=== PATIENT | male | born 1955 | race African-American/Black ===

== ENCOUNTER 2019-10-22 18:42 | Emergency (ER) | payer MEDICARE ==
[2019-10-22 18:59] VITALS: BP 149/74; PULSE 68; RESP 18; TEMP 98.1
[2019-10-22] MEDS ORDERED: DIPH,PERTUS(ACELL)TETVAC-LF 0.5 ML VIAL IM ONE (19:18)
[2019-10-22] MEDS ORDERED: TOPICAL SKIN ADHESIVE 1 EACH AMP TOPICAL ONE (19:18)
--- NOTE | 2019-10-22 19:42 | ED ---
Wound/Laceration HPI - General Chief Complaint: Wound/Laceration Stated Complaint: finger lac Time Seen by Provider: 10/22/19 19:01 Source: patient Mode of arrival: ambulatory Limitations: no limitations - History of Present Illness Initial Comments: 64-year-old male presented for chief complaint of left index finger laceration. Patient states she is cutting chicken when he lacerated his left index finger he states he put [place] wound apply pressure presents to the ER. Patient denies any other areas of injury. Patient unsure of his last tetanus. Doesn't limitations of range of motion or strength. Remaining review of system negative - Related Data Allergies Allergy/AdvReac Type Severity Reaction Status Date / Time No Known Allergies Allergy Verified 10/22/19 18:58 Review of Systems ROS Statement: Those systems with pertinent positive or pertinent negative responses have been documented in the HPI. ROS Other: All systems not noted in ROS Statement are negative. Past Medical History Past Medical History: No Reported History History of Any Multi-Drug Resistant Organisms: None Reported Past Surgical History: No Surgical Hx Reported Past Psychological History: No Psychological Hx Reported Smoking Status: Never smoker Past Alcohol Use History: None Reported Past Drug Use History: None Reported General Exam - General Exam Comments Initial Comments: General: The patient is awake and alert, in no distress, and does not appear acutely ill. Eye: Pupils are equal, round and reactive to light, extra-ocular movements are intact. No nystagmus. There is normal conjunctiva bilaterally. No signs of icterus. Ears, nose, mouth and throat: There are moist mucous membranes and no oral lesions. Musculoskeletal: Normal ROM, no tenderness. Strength 5/5 at the mcp dip and pip joints. Sensation intact proximal and distal to injury site. Radial pulses equal bilaterally 2+. Neurological: A&O x 3. CN II-XII intact grossly, There are no obvious motor or sensory deficits. Coordination appears grossly intact. Speech is normal. Skin: Skin is warm and dry and no rashes. Very superficial 3/4 cm laceration of the left index finger pad. Psychiatric: Cooperative, appropriate mood & affect, normal judgment. Limitations: no limitations Course Vital Signs 10/22/19 18:54 Temperature 98.1 F Pulse Rate 68 Respiratory 18 Rate Blood Pressure 149/74 O2 Sat by Pulse 99 Oximetry Medical Decision Making - Medical Decision Making Area irrigated and cleansed with iodine, wound edges approximated well with exofin. bandage applied. tdap updated. very superifical no concern given location/depth for any tendon injury. Patient will be discharge wtih pcp f/u and wound adhesive care instructions. Disposition Clinical Impression: Finger laceration Disposition: HOME SELF-CARE Condition: Good Instructions (If sedation given, give patient instructions): Skin Adhesive Care (ED) Additional Instructions: Please use medication as discussed. Please follow-up with family doctor in the next 2 days. Please return to emergency room if the symptoms increase or worsen or for any other concerns. Is patient prescribed a controlled substance at d/c from ED?: No Referrals: Suzanne Sanders MD [Primary Care Provider] - 1-2 days Time of Disposition: 19:42
== END 2019-10-22 19:52 | disposition home or self-care (01) ==
LOC: EC 18:42
DX: S61.211A Laceration without foreign body of left index finger without damage to nail, initial encounter (principal); W26.0XXA Contact with knife, initial encounter; Y93.G3 Activity, cooking and baking
CPT/HCPCS: 12001; 90471; 90715; 99282

== ENCOUNTER 2019-12-19 08:01 | Day surgery (SDC) | payer MEDICARE ==
[2019-12-17 10:15] VITALS: BMI 21.9
[~2019-12-19 08:01] MED LIST: LACTATED RINGERS 1,000 ML IV SCH
[2019-12-19 09:02] VITALS: TEMP 97.2
[2019-12-19] MEDS ORDERED: GLUCAGON 1 MG/ML VIAL ONE (09:37)
[2019-12-19] MEDS ORDERED: PROPOFOL 10 MG/ML 20 ML VIAL IV ONE (09:37)
--- NOTE | 2019-12-19 09:39 | P.GSHP ---
History of Present Illness H&P Date: 12/19/19 Chief Complaint: Screening colonoscopy This 64-year-old male presents today for screening colonoscopy. Patient denies any significant GI complaints. Past Medical History Past Medical History: No Reported History Additional Past Medical History / Comment(s): hx migraines, constipation, History of Any Multi-Drug Resistant Organisms: None Reported Past Surgical History: Orthopedic Surgery Additional Past Surgical History / Comment(s): rt foot surgeries Past Anesthesia/Blood Transfusion Reactions: No Reported Reaction Smoking Status: Former smoker - Past Family History Father Family Medical History: Cancer Additional Family Medical History / Comment(s): lung Medications and Allergies Home Medications Medication Instructions Recorded Confirmed Type Cholecalciferol [Vitamin D3 (25 1,000 unit PO DAILY 12/17/19 12/19/19 History Mcg = 1000 Iu)] Cyanocobalamin (Vitamin B-12) 2,500 mcg PO DAILY 12/17/19 12/19/19 History [Vitamin B-12] Multivitamins, Thera [Multivitamin 1 tab PO DAILY 12/17/19 12/19/19 History (formulary)] Naproxen Sodium [Aleve] 220 mg PO Q12HR PRN 12/17/19 12/19/19 History Allergies Allergy/AdvReac Type Severity Reaction Status Date / Time No Known Allergies Allergy Verified 12/19/19 08:51 Surgical - Exam Vital Signs Temp Pulse Resp BP Pulse Ox 97.2 F L 66 16 157/86 97 12/19/19 08:57 12/19/19 08:57 12/19/19 08:57 12/19/19 08:57 12/19/19 08:57 - General well developed, well nourished, no distress - Eyes PERRL - ENT normal pinna - Neck no masses - Respiratory normal expansion - Cardiovascular Rhythm: regular - Abdomen Abdomen: soft, non tender Assessment and Plan Assessment: We'll perform screening colonoscopy.
--- NOTE | 2019-12-19 09:53 | P.OP ---
Date of Procedure: 12/19/19 Preoperative Diagnosis: Screening colonoscopy Postoperative Diagnosis: Left colon stricture Diverticulosis Procedure(s) Performed: Colonoscopy Anesthesia: MAC Surgeon: Prashanth Contreras Pathology: none sent Condition: stable Disposition: PACU Description of Procedure: The patient's placed on the endoscopy table lateral position. He received IV sedation. Digital rectal exam was performed which revealed no abnormalities. The prostate was symmetric without nodules. The flexible colonoscope was then placed patient anus and passed throughout the colon. In the left colon appeared to be strictured. The colon could not be a slight of air. Undergone was given. The colon scope was not insufflated. This point scope withdrawn. In the descending and; a few scattered diverticula. Scope was then brought back the rectum this appeared normal. Scope was withdrawn for patient. Patient was scheduled for a barium enema.
[2019-12-19 10:13] VITALS: PULSE 58
[2019-12-19 10:26] VITALS: BP 137/79; RESP 18
--- NOTE | 2019-12-19 18:34 | XR ---
EXAMINATION TYPE: XR abdomen 1V at 1248 hours, XR abdomen 1V and 0242 hours DATE OF EXAM: 12/19/2019 Comparison: None Clinical History: 64-year-old male post incomplete colonoscopy, BE prelim Findings: Consecutive radiographs were taken. The initial radiograph showed excessive colonic air. Subsequent r adiograph showed greater degree of small bowel air with similar persistent excessive colonic air. Pat ient will need to return for barium enema exam. Impression: Consecutive preliminary images taken approximately 2 hours apart after incomplete colonoscopy. Both i mages show excessive colonic air. Patient will need to return at a later time for barium enema exam.
--- NOTE | 2019-12-23 12:59 | CDI ---
Date: 12.23.2019 CDS/Chemistry Technologist Name: Tanya Wiseman Phone: If any questions, call Maame Hernandez Crew Manager at [phone] Patient Name: Dani Oconnor Admit Date 12.19.19 Discharge Date: 12.19.19 ATTENTION: The [facility] Coding Staff appreciate your assistance in clarifying documentation. Please respond to the clarification below the line at the bottom and electronically sign. The [facility] Coding staff will review the response and follow-up if needed. Please note: Queries are made part of the Legal Health Record. If you have any questions, please contact the Crew Manager. Dear Dr. Contreras In order to code to the greatest specificity and for the greatest reimbursement I need the following information: In your colonoscopy report you have documented colonoscope was .passed throughout the colon. Please specify to what point the colonoscope reached. Thank you for your kind consideration. The colonoscope was placed into the left colon_ MTDD
== END 2019-12-19 11:50 | disposition home or self-care (01) ==
LOC: ORWHC2ENDO 08:01
PROVIDERS: ATTEND Surgery
DX: Z12.11 Encounter for screening for malignant neoplasm of colon (principal); K56.699 Other intestinal obstruction unspecified as to partial versus complete obstruction; K57.30 Diverticulosis of large intestine without perforation or abscess without bleeding; K21.9 Gastro-esophageal reflux disease without esophagitis; Z86.69 Personal history of other diseases of the nervous system and sense organs; Z87.19 Personal history of other diseases of the digestive system; Z98.890 Other specified postprocedural states; Z87.891 Personal history of nicotine dependence; Z80.1 Family history of malignant neoplasm of trachea, bronchus and lung
CPT/HCPCS: 45378; 74018; J1610; J2704

== ENCOUNTER → 2019-12-20 | Outpatient (CLI) | payer MEDICARE ==
--- NOTE | 2019-12-20 09:43 | XR ---
EXAMINATION TYPE: XR KUB DATE OF EXAM: 12/20/2019 Comparison: 12/19/2019 Clinical History: 64-year-old male Left colon stricture. Failed colonoscopy Findings: Persistent moderate gaseous distention throughout the colon and additional gaseous small bowel loops. Some interval evacuation of air from the descending colon. Pelvic phleboliths. Nonobstructed bowel g as pattern. Impression: Persistent gassy colon. Only slight improvement on the left side of the colon. Incomplete colonoscopy on 12/19/2019 returning today for potential barium enema. Decision is made to reschedule barium enem a to a future date due to excess colonic air.
== END | disposition home or self-care (01) ==
LOC: RADFLMAIN 07:38
PROVIDERS: ATTEND Surgery
DX: K56.699 Other intestinal obstruction unspecified as to partial versus complete obstruction (principal)
CPT/HCPCS: 74018

== ENCOUNTER → 2020-01-13 | Outpatient (CLI) | payer MEDICARE ==
--- NOTE | 2020-01-13 11:35 | FL ---
EXAMINATION TYPE: FL barium enema DATE OF EXAM: 01/13/2020 COMPARISON: NONE HISTORY: Unsuccessful colonoscopy. Correlate for left colonic stricture. TECHNIQUE: A single contrast barium enema study is performed. FINDINGS: Quality Improvement Analyst view of the abdomen shows overall non-obstructive bowel gas pattern. No evidence of any mass or polyp, obstructing or constricting lesion throughout the colon. No signif icant diverticular disease is noted. Appendix was filled and appeared normal. The terminal ileum was refluxed and appears within normal l imits. IMPRESSION: Normal barium enema study.
== END | disposition home or self-care (01) ==
LOC: RADFLMAIN 09:02
PROVIDERS: ATTEND Surgery
DX: K56.699 Other intestinal obstruction unspecified as to partial versus complete obstruction (principal)
CPT/HCPCS: 74270

== ENCOUNTER → 2020-12-25 | Day surgery (SDC) | payer MEDICARE ==
[2020-12-24 09:17] VITALS: BMI 22.5
[~2020-12-25] MED LIST changes: +ALPRAZolam 0.25 MG TAB PO PRN; +ALPRAZolam 0.5 MG TAB PO PRN; +ASPIRIN 325 MG TAB PO ONE; +ASPIRIN 81 MG PO SCH; +ATORVASTATIN 80 MG TAB PO ONE; +HEPARIN SODIUM 1,000 UN/ML (10ML VL) IV ONE; +IOPAMIDOL-370 125ML BTL INJ ONE; -LACTATED RINGERS 1,000 ML IV SCH; +LIDOCAINE 1% INJ 10MG/ML (20 ML MDV) ONE; +LIDOCAINE 1% INJ 10MG/ML (20 ML MDV) SQ ONE; +MIDAZOLAM 2 MG/2 ML VIAL IV ONE; +NITROGLYCERIN SL TABS 0.4 MG TAB SUBLINGUAL PRN; +PRAVASTATIN SODIUM 80 MG TAB PO SCH; +RX INFO: IV CONTRAST WAS GIVEN 1 EACH MISC MISCELLANE PRN; +SODIUM CHLORIDE 0.9% 1,000 ML IV SCH; +SODIUM CHLORIDE 0.9% 1,000 ML in EMPTY BAG 1 BAG IV SCH; +VERAPAMIL 2.5 MG/ML 2 ML AMP ONE; +VERAPAMIL SYRINGE (5 MG/10 ML) INTRAARTER ONE; +fentaNYL (PF) 50 MCG/ML 2 ML AMP IV ONE; +fentaNYL (PF) 50 MCG/ML 2 ML AMP ONE; +lisinopriL 5 MG TAB PO SCH
[2020-12-25 08:17] LABS: Potassium 4.3 mmol/L (3.5-5.1)
[2020-12-25 08:23] VITALS: TEMP 98.3
--- NOTE | 2020-12-25 13:52 | CC ---
CARDIAC CATHETERIZATION REPORT DATE OF SERVICE: 12/25/2020 Mr. Oconnor is a 65-year-old male with known history of hypertension and hyperlipidemia who recently presented with evidence of TIA. As part of his evaluation, he underwent myocardial perfusion imaging that revealed evidence of inducible ischemia. In view of that, recommendation was made regarding cardiac catheterization. The procedure as well as its risks and the complications were discussed with the patient, who was in full understanding and agreement. PROCEDURE DESCRIPTION: Patient was brought to the lab assistant in a fasting, semi-sedated state after receiving fentanyl and Benadryl and achieving a moderate conscious sedated state. Using Xylocaine anesthesia and Seldinger technique, a 6-Swazi sheath was introduced in the right radial artery. Selective right and left coronary angiography was performed using 5- Swazi 3.5 bend right and left Dai catheters. Multiple views were taken of the arteries, including hemiaxial views. The right Dai was used to cross the aortic valve, and left ventricular end-diastolic pressure was calculated. Following that, catheter and sheaths were removed. Hemostasis was obtained with deployment of a TR band. There was no immediate complication. Patient was returned to his room in stable condition. Of note, the patient received a total of 4500 units of intravenous heparin as well as intraarterial verapamil. There was no immediate complication. FINDINGS: LEFT MAIN: This is a large-sized vessel bifurcating into left circumflex and left anterior descending artery. Left main coronary artery has no evidence of high- grade stenosis. LEFT ANTERIOR DESCENDING ARTERY: This is a large-sized vessel reaching to the apex with a wrap around the apex segment reaching the inferoapical wall. The left anterior descending artery gives rise to two small- to moderate-sized diagonal branches. The left anterior descending artery as well as its branches have no evidence of obstructive coronary artery disease. LEFT CIRCUMFLEX: This is a large nondominant vessel giving rise to two obtuse marginal branches. The left circumflex as well as its branches have no evidence of obstructive coronary artery disease. RIGHT CORONARY ARTERY: This is a small dominant vessel bifurcating distally into PDA and posterolateral segment and branches. The right coronary artery as well as its branches have no evidence of obstructive disease. LEFT VENTRICULOGRAM: Left ventriculogram was not performed. HEMODYNAMICS: There was no gradient across the aortic valve. The left ventricular end- diastolic pressure was 14 to 16 mmHg. CONCLUSION: 1. Normal coronary arteries. 2. Normal left ventricular end-diastolic pressure. RECOMMENDATIONS: In view of findings and anatomy, I have recommended continued medical therapy with the aggressive coronary risk modifications that have been initiated. Those findings and recommendations were discussed with the patient and his family, who are in full understanding and agreement. Duration of sedation was 12 minutes. JANE / NAIF: [id number] / MTDD
--- NOTE | 2020-12-25 14:03 | LTR ---
December 25 To: Dr. Sanders Re: Isidro Oconnor (51) Dear Dr. Sanders, I had the pleasure of performing cardiac catheterization on Mr. Oconnor at [facility] on December 25. A full copy of the procedure note will be forwarded to you. In brief, he was found to have no evidence of obstructive coronary disease. Based on those findings, I have recommended continuing on the present medical regimen. Thank you again for allowing me to participate in this patient's care. Please feel free to call with any questions. Sincerely, Radha Luther M.D. JANE / NAIF: [id number] /
[2020-12-25 15:36] VITALS: BP 121/76; PULSE 68; RESP 14
== END | disposition home or self-care (01) ==
LOC: CATHCVL 07:30
PROVIDERS: ATTEND Internal Medicine Interventional Cardiology
DX: R94.39 Abnormal result of other cardiovascular function study (principal); I10 Essential (primary) hypertension; E78.2 Mixed hyperlipidemia; Z20.822 Contact with and (suspected) exposure to COVID-19; Z82.49 Family history of ischemic heart disease and other diseases of the circulatory system; Z79.899 Other long term (current) drug therapy; Z86.73 Personal history of transient ischemic attack (TIA), and cerebral infarction without residual deficits; Z87.891 Personal history of nicotine dependence; Z79.82 Long term (current) use of aspirin
CPT/HCPCS: 93458; 80051; 87635; C1894; C1769; J2250; J2001; J3010; J1644; Q9967

== ENCOUNTER → 2021-01-26 | Outpatient (CLI) | payer MEDICARE ==
--- NOTE | 2021-01-26 16:27 | XR ---
EXAMINATION TYPE: XR sacroiliac joint comp BILAT DATE OF EXAM: 01/26/2021 COMPARISON: None HISTORY: Sacroiliac joint pain TECHNIQUE: Bilateral sacroiliac joints are examined in 3 projections FINDINGS: Sacroiliac joints are patent. There is some joint space narrowing compatible some mild dege nerative change. Symphysis pubis visualized appears normal. IMPRESSION: 1. Mild bilateral sacroiliac joint degenerative change
--- NOTE | 2021-01-26 17:15 | XR ---
EXAMINATION TYPE: XR Hip Complete LT DATE OF EXAM: 01/26/2021 COMPARISON: None HISTORY: Pain TECHNIQUE: 2 view left hip FINDINGS: Femoral head articulates with the acetabulum. Joint space appears preserved. No acute fract ure or dislocation is evident. Follow up exams can be performed as clinically indicated. IMPRESSION: 1. Normal 2 view left hip
== END | disposition home or self-care (01) ==
LOC: RADXRMAIN 10:38
PROVIDERS: ATTEND Family Medicine
DX: M53.3 Sacrococcygeal disorders, not elsewhere classified (principal); M25.552 Pain in left hip
CPT/HCPCS: 72202; 73502

== ENCOUNTER → 2021-04-16 | Outpatient (CLI) | payer MEDICARE ==
[2021-04-17 14:29] LABS: Coronavirus SARS CoV-2 Not Detected (Not Detected)
== END | disposition home or self-care (01) ==
LOC: LABPAT 13:57
PROVIDERS: ATTEND Internal Medicine Interventional Cardiology
DX: Z20.822 Contact with and (suspected) exposure to COVID-19 (principal)
CPT/HCPCS: U0003; C9803; U0005

== ENCOUNTER 2021-04-20 06:21 | Day surgery (SDC) | payer MEDICARE ==
[2021-04-19 08:42] VITALS: BMI 21.9
[~2021-04-20 06:21] MED LIST changes: -ALPRAZolam 0.25 MG TAB PO PRN; -ALPRAZolam 0.5 MG TAB PO PRN; -ASPIRIN 325 MG TAB PO ONE; -ASPIRIN 81 MG PO SCH; -ATORVASTATIN 80 MG TAB PO ONE; -HEPARIN SODIUM 1,000 UN/ML (10ML VL) IV ONE; -IOPAMIDOL-370 125ML BTL INJ ONE; -LIDOCAINE 1% INJ 10MG/ML (20 ML MDV) ONE; -LIDOCAINE 1% INJ 10MG/ML (20 ML MDV) SQ ONE; -MIDAZOLAM 2 MG/2 ML VIAL IV ONE; -NITROGLYCERIN SL TABS 0.4 MG TAB SUBLINGUAL PRN; -PRAVASTATIN SODIUM 80 MG TAB PO SCH; -RX INFO: IV CONTRAST WAS GIVEN 1 EACH MISC MISCELLANE PRN; -SODIUM CHLORIDE 0.9% 1,000 ML in EMPTY BAG 1 BAG IV SCH; -VERAPAMIL 2.5 MG/ML 2 ML AMP ONE; -VERAPAMIL SYRINGE (5 MG/10 ML) INTRAARTER ONE; -fentaNYL (PF) 50 MCG/ML 2 ML AMP IV ONE; -fentaNYL (PF) 50 MCG/ML 2 ML AMP ONE; -lisinopriL 5 MG TAB PO SCH
[2021-04-20 06:52] VITALS: RESP 18; TEMP 98.8
[2021-04-20] MEDS ORDERED: LIDOCAINE 1% INJ 10MG/ML (20 ML MDV) ONE (07:50)
[2021-04-20] MEDS ORDERED: MIDAZOLAM 2 MG/2 ML VIAL IV ONE (08:20)
[2021-04-20] MEDS ORDERED: LIDOCAINE 1% INJ 10MG/ML (20 ML MDV) SQ ONE (08:23)
[2021-04-20] MEDS ORDERED: SODIUM CHLORIDE 0.9% 1,000 ML IV SCH (08:45)
--- NOTE | 2021-04-20 08:45 | P.PCN ---
Date of Procedure: 04/20/21 Preoperative Diagnosis: Cryptogenic CVA Postoperative Diagnosis: The same Procedure(s) Performed: Insertion of the loop recorder Description of Procedure: Patient was brought to the lab in fasting state. He was prepped and draped in the usual fashion. He was given 1 mg of Versed IV sedation. The skin in the third intercostal space on the left side was infiltrated with lidocaine. An incision was made in the skin. The loop recorder was inserted in the usual fashion. Patient tolerated the procedure well. Thresholds were excellent. The skin was closed with 2 stay sutures. Patient will be discharged home later today. Final impression: #1. Successful implantation of loop recorder. Plan: Patient will be discharged home later today. Patient will keep the incision dry. Follow-up in the office with the Dr. Luther in one week
[2021-04-20 09:01] VITALS: BP 133/78; PULSE 67
== END 2021-04-20 09:20 | disposition home or self-care (01) ==
LOC: CATHEP 06:21
PROVIDERS: ATTEND Internal Medicine Cardiovascular Disease
DX: G45.9 Transient cerebral ischemic attack, unspecified (principal); R20.0 Anesthesia of skin; I10 Essential (primary) hypertension; E78.5 Hyperlipidemia, unspecified; Z82.49 Family history of ischemic heart disease and other diseases of the circulatory system
CPT/HCPCS: 33285; C1764; J2250; J0690; J2001

== ENCOUNTER → 2021-08-13 | Outpatient (CLI) | payer MEDICARE ==
--- NOTE | 2021-08-13 14:51 | XR ---
EXAMINATION TYPE: XR chest 2V DATE OF EXAM: 08/13/2021 COMPARISON: NONE HISTORY: Shortness of breath TECHNIQUE: Frontal and lateral views of the chest are obtained. FINDINGS: Scattered senescent parenchymal changes noted. Hyperinflation compatible with COPD. No evidence for infiltrate. No evidence for atelectasis. Heart size is stable. Mediastinal structures are stable and grossly unremarkable. No evidence for hilar prominence. Degenerative changes dorsal spine. IMPRESSION: 1. No evidence for acute pulmonary disease.
--- NOTE | 2021-08-13 15:50 | NM ---
EXAMINATION TYPE: NM pul vent and perfuse DATE OF EXAM: 08/13/2021 COMPARISON: NONE HISTORY: Shortness of breath TECHNIQUE: Utilizing inhalation of 31.2 mCi Tc 99m DTPA aerosol and intravenous injection of 4.8 mCi of Tc 99m MAA, ventilation and perfusion images are acquired post injection in multiple projections. FINDINGS: Normal radiotracer distribution is noted in the lungs. There is no evidence of mismatched defects. IMPRESSION: Very low probability for pulmonary embolism.
== END | disposition home or self-care (01) ==
LOC: RADNMMAIN 14:17
PROVIDERS: ATTEND Nurse Practitioner Gerontology
DX: R06.02 Shortness of breath (principal)
CPT/HCPCS: 71046; 78582; A9540; A9567

== ENCOUNTER → 2021-11-26 | Outpatient (CLI) | payer MEDICARE ==
--- NOTE | 2021-11-26 08:10 | CT ---
EXAMINATION TYPE: CT chest w con DATE OF EXAM: 11/26/2021 COMPARISON: Chest x-ray August 13, 2021 HISTORY: History of covid and pulmonary fibrosis CT DLP: 178.30 mGycm. Automated Exposure Control for Dose Reduction was Utilized. TECHNIQUE: CT scan of the thorax is performed following with IV Contrast, patient injected with 70 m L of Isovue 300. FINDINGS: LUNGS: Mild underlying emphysematous change. Trace bilateral pleural effusions and mild interstitial edema in the lower lungs. Focal mild linear scarring and/or atelectasis in the right middle lobe and lingula axial image 43. No pneumothorax seen bilaterally. MEDIASTINUM: There are no greater than 1 cm hilar or mediastinal lymph nodes. Small to tiny pericardi al effusion is seen. No cardiomegaly. Focal peripheral calcified plaque in the left subclavian arter y. Mild to moderate left ventricular dilatation. Mild right atrial dilatation. OTHER: Left anterior subcutaneous loop recorder. Slight scoliotic curvature upper thoracic spine. IMPRESSION: Mild to minimal emphysematous change and minimal parenchymal scarring. Trace bilateral pl eural effusions and mild lower lung interstitial edema consistent with slight fluid overload state.
== END | disposition home or self-care (01) ==
LOC: RADCTMAIN 07:01
PROVIDERS: ATTEND Family Medicine
DX: J43.9 Emphysema, unspecified (principal); J90 Pleural effusion, not elsewhere classified
CPT/HCPCS: 71260; Q9967

== ENCOUNTER → 2022-07-20 | Outpatient (CLI) | payer MEDICARE ==
[2022-07-20 08:22] LABS: ALT 22 U/L (4-49); AST 34 U/L (17-59); African American GFR (CKD) 85 (>60 ml/min/1.73 sqM); Albumin 4.4 g/dL (3.5-5.0); Albumin/Globulin Ratio 1.4; Alkaline Phosphatase 74 U/L (38-126); Anion Gap 3 mmol/L; Blood Urea Nitrogen 20 mg/dL (9-20); Calcium 9.3 mg/dL (8.4-10.2); Carbon Dioxide 33 mmol/L (22-30); Chloride 106 mmol/L (98-107); Globulin 3.2 g/dL; Glucose 110 mg/dL (74-99); Non-African American GFR(CKD) 74 (>60 ml/min/1.73 sqM); Potassium 4.9 mmol/L (3.5-5.1); Sodium 142 mmol/L (137-145); Total Bilirubin 0.7 mg/dL (0.2-1.3); Total Protein 7.6 g/dL (6.3-8.2)
--- NOTE | 2022-07-20 10:53 | CT ---
EXAMINATION TYPE: CT orbits wo/w con DATE OF EXAM: 07/20/2022 COMPARISON: None. HISTORY: Left eye ulcer and pain x1 month. CT DLP: 785 mGycm Automated exposure control for dose reduction was used. CONTRAST: Performed without and with IV Contrast, patient injected with 100ml mL of Isovue 300. FINDINGS: Orbital floors and ernandez are intact. Globes are intact bilaterally. Status post repair pectus muscles are symmetric and within normal limits. No abnormal enhancement is seen. Visualized brain parenchyma is unremarkable. IMPRESSION: Unremarkable study.
== END | disposition home or self-care (01) ==
LOC: RADCTMAIN 07:17
PROVIDERS: ATTEND Ophthalmology
DX: H57.12 Ocular pain, left eye (principal)
CPT/HCPCS: 80053; 70482; 36415; Q9967